=== PATIENT | female | born 1990 | race Caucasian/White ===

== ENCOUNTER 2022-01-31 02:09 | Day surgery (SDC) | payer OTHER, SELFPAY ==
[2022-01-17 14:30] VITALS: BMI 31.1
--- NOTE | 2022-01-30 10:43 | PM.HPGS ---
History of Present Illness History of Present Illness Consent: Risks, benefits, and alternatives have been discussed and questions answered. Patient agrees to proceed with procedure. Chief complaint: Fam Hx colon cancer; Hx of rectal polyps Narrative: Lata Vazquez is a 32 year old female referred for colon cancer screening. She has a history of a rectal polyp and has a family history of colon cancer. her sister in fact recently was found have high-grade dysplasia / carcinoma in Situ in the large polyp. Review of Systems Review of Systems: All systems reviewed & are unremarkable except as noted in HPI and below PMFSH Family History Family History Father Hypertension Family history of elevated blood lipids Other Carcinoma of colon Family history of cardiovascular disease Social History Social History Smoking status: Never smoker Alcohol intake: never Substance use: never Substance use type: does not use Living arrangements: with family Spiritual care concerns: No Meds Home Medications and Allergies Home Medications Medication Instructions Recorded Confirmed Type omeprazole 40 mg capsule,delayed 40 mg PO DAILY #90 caps 11/27/21 01/31/22 Rx release levonorgestrel-ethinyl estradiol See Rx Instructions .Route 12/25/21 01/31/22 Rx 0.1 mg-20 mcg tablet (Lutera (28)) .COMPLEX #84 tabs sertraline 50 mg tablet See Rx Instructions .Route 12/25/21 01/31/22 Rx .COMPLEX #90 tabs Allergies Allergy/AdvReac Type Severity Reaction Status Date / Time No Known Allergies Allergy Verified 01/31/22 06:30 Exam Resp: Auscultation: clear to auscultation bilaterally Cardio: Rate: regular rate Rhythm: regular rhythm GI: GI Palp: Yes Soft to palpation and No Tenderness to palpation present (GI) Assessment and Plan Assessment and plan (1) Family history of malignant neoplasm of colon in first degree relative diagnosed when younger than 60 years of age: Code(s): Z80.0 - Family history of malignant neoplasm of digestive organs Status: Acute Assessment and Plan: Colonoscopy with possible biopsy or polypectomy or cautery or injection of substances.
[2022-01-31 06:32] VITALS: BP 145/93; PULSE 95; RESP 18; TEMP 36.5; O2SAT 100
[2022-01-31] MEDS: LACTATED RINGERS 1,000 ML 150 ML IV CONT (06:39)
--- NOTE | 2022-01-31 07:15 | P.PNAN_ITS ---
Anes - Initial Pre Proc Eval Procedure: Operation Date: 01/31/22 07:30 Proposed Procedures p Screening Colonoscopy - Julio Cesar Chavez MD Date/Time: 01/31/22 07:15 Surgeon: Julio Cesar Chavez MD Pre Op Diagnosis: Fam Hx colon cancer; Hx of rectal polyps Patient Data Age: 32 Gender: F Height: 1.73 m Weight: 89.6 kg Last Vital Signs Temp 97.7 F 01/31/22 06:32 Pulse 95 01/31/22 06:32 Resp 18 01/31/22 06:32 BP 145/93 H 01/31/22 06:32 Pulse Ox 100 01/31/22 06:32 O2 Del Method Room Air 01/31/22 06:32 Allergies Allergy/AdvReac Type Severity Reaction Status Date / Time No Known Allergies Allergy Verified 01/31/22 06:30 Home Medications Medication Instructions Recorded Confirmed Type omeprazole 40 mg capsule,delayed 40 mg PO DAILY #90 caps 11/27/21 01/31/22 Rx release levonorgestrel-ethinyl estradiol See Rx Instructions .Route 12/25/21 01/31/22 Rx 0.1 mg-20 mcg tablet (Lutera (28)) .COMPLEX #84 tabs sertraline 50 mg tablet See Rx Instructions .Route 12/25/21 01/31/22 Rx .COMPLEX #90 tabs Patient hx anesthesia problems: none Family hx anesthesia problems: none Results Review: All pre-operative results and documents have been reviewed as part of the pre- operative evaluation. [facility] Family History Family History Father Hypertension Family history of elevated blood lipids Other Carcinoma of colon Family history of cardiovascular disease Social History Social History Smoking status: Never smoker Alcohol intake: never Substance use: never Substance use type: does not use Living arrangements: with family Spiritual care concerns: No Anes - Eval Final PreProcedure Day of Procedure 01/31/22 07:15 Patient weight: obese Heart: regular rate and rhythm Lungs: clear to auscultation Airway: Mallampati scale class II Neurological: alert and oriented Last oral intake: >/= 8 hours ASA classification: II Emergent: no Anesthetic plan: proceed Anesthesia type and monitoring: general GIVS and standard monitoring Results Review: All pre-operative results and documents have been reviewed as part of the pre- operative evaluation. Informed Consent: The patient's anesthetic plan and its attendant risks and benefits were discussed with the patient/family/POA. Questions were solicited and answers provided to the satisfaction of the patient/family/POA.
[2022-01-31 07:42] VITALS: BP 113/56; PULSE 76; RESP 18; O2SAT 98
[2022-01-31 07:52] VITALS: BP 116/78; PULSE 80; RESP 18; O2SAT 100
[2022-01-31 08:00] VITALS: BP 128/85; PULSE 72; RESP 18; O2SAT 100
== END 2022-01-31 08:15 | disposition home or self-care (01) ==
PROVIDERS: PCP Family Medicine; Visit Provider Internal Medicine Gastroenterology
PROC: 0DJD8ZZ Inspection of Lower Intestinal Tract, Via Natural or Artificial Opening Endoscopic (ICD-10-PCS; CPT 45378; principal; 2022-01-31 07:30)
DX: Z12.11 Encounter for screening for malignant neoplasm of colon (principal); D12.4 Benign neoplasm of descending colon; K63.5 Polyp of colon; Z80.0 Family history of malignant neoplasm of digestive organs; Z83.71 Family history of colonic polyps; E66.9 Obesity, unspecified; Z68.30 Body mass index [BMI] 30.0-30.9, adult
CPT/HCPCS: 45385; 45380; 88305; J2704; J7120

== ENCOUNTER 2022-11-21 07:17 | Outpatient (CLI) | payer OTHER, SELFPAY ==
[2022-11-21 08:13] LABS: Basophils Absolute Auto 0.1 K/mm3 (0.0-0.1); Basophils Percent Auto 0.8 % (0.2-1.2); Eosinophils Absolute Auto 0.2 K/mm3 (0-0.3); Hematocrit 36.8 % (37.0-47.0); Immature Granulocyte Absolute 0.01 K/mm3 (0.00-0.031); Immature Granulocyte Percent A 0.1 % (0-0.5); Lymphocytes Percent Auto 28.6 % (18.3-44.2); Mean Corpuscular HGB Conc 32.6 g/dl (32-36); Mean Corpuscular Hemoglobin 27.3 pg (26-34); Mean Corpuscular Volume 83.6 fl (80-100); Mean Platelet Volume 9.2 fl (7.4-10.4); Monocytes Absolute Auto 0.5 K/mm3 (0.1-0.6); Monocytes Percent Auto 6.7 % (2.6-8.5); Neutrophils Absolute Auto 4.5 K/mm3 (1.3-6.7); Neutrophils Percent Auto 61.8 % (45.5-73.1); Platelet Count Result 365 k/mm3 (150-375); Red Cell Distribution Width 14.6 % (11.5-14.5); White Blood Count 7.3 K/mm3 (4.5-10.0)
[2022-11-21 08:29] LABS: Alanine Aminotransferase 20 U/L (6-35); Albumin Level 4.3 g/dL (3.5-5.1); Alkaline Phosphatase 88 U/L (38-126); Anion Gap 5 mmol/L (8-16); Aspartate Amino Transferase 23 U/L (14-36); Bilirubin,Total 0.6 mg/dL (0.2-1.3); Blood Urea Nitrogen 15 mg/dL (7-17); Calcium 9.2 mg/dL (8.4-10.2); Carbon Dioxide 26 mmol/L (22-30); Chloride 104 mmol/L (98-107); Cholesterol 203 mg/dL (0-200); Estimated Glomerular Filt Rate > 60; Glucose 100 mg/dL (65-110); HDL Direct 61 mg/dL; Sodium 135 mmol/L (137-145); Triglycerides 54 mg/dL (<150)
[2022-11-21 08:40] LABS: LDL Cholesterol Direct 106 mg/dL
== END 2022-11-21 07:18 | disposition home or self-care (01) ==
LOC: ANHLAB 07:19
PROVIDERS: PCP Family Medicine; Visit Provider Family Medicine
DX: Z00.00 Encounter for general adult medical examination without abnormal findings (principal)
CPT/HCPCS: 36415; 80053; 80061; 85025

== ENCOUNTER 2024-01-25 12:52 | Outpatient (CLI) | payer OTHER, SELFPAY ==
--- NOTE | ~2024-01-25 | MM_ITS ---
EXAMINATION: MM screening [facility] BI w noman HISTORY: Screening TECHNIQUE: Craniocaudal and mediolateral oblique 3-D tomosynthesis images were obtained and synthetic 2-D images were generated. CAD analysis was submitted and interpreted. COMPARISON: No prior mammogram is available for comparison at this institution. BREAST PARENCHYMAL COMPOSITION: Dense: The breasts are heterogeneously dense, which may obscure small masses FINDINGS: There is no mammographic evidence for malignancy in the right breast. There is focal asymme try medially in the left breast, middle third on CC view. IMPRESSION: 1. Focal left breast asymmetry. 2. Additional mammographic views and possible breast ultrasound are recommended. BI-RADS Category 0: Incomplete: Needs additional imaging evaluation. Reviewed, dictated and finalized at location B. IMPRESSION: 1. Focal left breast asymmetry. 2. Additional mammographic views and possible breast ultrasound are recommended . BI-RADS Category 0: Incomplete: Needs additional imaging evaluation.
== END 2024-01-25 12:53 | disposition home or self-care (01) ==
LOC: MICIMG 12:53
PROVIDERS: PCP Family Medicine; Visit Provider Family Medicine
DX: Z12.31 Encounter for screening mammogram for malignant neoplasm of breast (principal); R92.8 Other abnormal and inconclusive findings on diagnostic imaging of breast
CPT/HCPCS: 77063; 77067

== ENCOUNTER 2024-01-27 07:43 | Outpatient (CLI) | payer OTHER, SELFPAY ==
--- NOTE | ~2024-01-27 | MMUS_ITS ---
EXAMINATION: MM diagnostic alida LT w noman, US breast LT limited HISTORY: Follow-up left breast asymmetry TECHNIQUE: Additional 3-D tomosynthesis images of the left breast were performed and synthetic 2-D im ages were generated. CAD analysis was submitted and interpreted. High resolution Limited left breast ultrasound was performed. COMPARISON: 01/25/2024 BREAST PARENCHYMAL COMPOSITION: Dense: The breasts are heterogeneously dense, which may obscure small masses FINDINGS: MAMMOGRAPHIC FINDINGS: There is persistent asymmetry in the lower inner quadrant of the left breast, anterior, middle depth. There are no suspicious calcifications. No discrete mass. ULTRASOUND: Limited left breast ultrasound: At 10:00, 3.5 cm from the nipple there is an irregular shaped hypoech oic mass measuring 6 mm with irregular echogenic rim. No posterior features or internal vascularity. No other masses are identified. IMPRESSION: 1. Irregular shaped hypoechoic mass of the left breast at 10:00, 3.5 cm from the nipple. 2. Ultrasound-guided left breast biopsy recommended. BI-RADS category 4, suspicious findings. Reviewed, dictated and finalized at location B. IMPRESSION: 1. Irregular shaped hypoechoic mass of the left breast at 10:00, 3.5 cm from th e nipple. 2. Ultrasound-guided left breast biopsy recommended. BI-RADS category 4, suspicious findings.
== END 2024-01-27 07:44 | disposition home or self-care (01) ==
LOC: MICIMG 07:43
PROVIDERS: PCP Family Medicine; Visit Provider Family Medicine
DX: R92.8 Other abnormal and inconclusive findings on diagnostic imaging of breast (principal)
CPT/HCPCS: 76642; 77061; 77065; G0279

== ENCOUNTER 2024-01-28 09:00 | Outpatient (CLI) | payer OTHER, SELFPAY ==
--- NOTE | ~2024-01-28 | US_ITS ---
US breast LT limited INDICATION: Left breast mass seen on prior examination. Biopsy requested. TECHNIQUE: Dedicated left breast ultrasound COMPARISON: Ultrasound dated 01/27/2024 FINDINGS: There is a small cyst identified. The mass of interest seen on prior examination could not be duplicated on the current study. Biopsy canceled. Recommend short-term follow-up diagnostic left m ammogram and ultrasound. IMPRESSION: 1: No sonographic evidence for malignancy. Mass seen on prior examination could not be duplicated on the current study. BI-RADS CATEGORY 3-PROBABLY BENIGN FINDING RECOMMENDATION: 6 month follow-up diagnostic left mammogram and Limited left breast ultrasound recomm ended. Reviewed, dictated and finalized at location B. IMPRESSION: 1: No sonographic evidence for malignancy. Mass seen on prior examination could not be duplicated on the current study. BI-RADS CATEGORY 3-PROBABLY BENIGN FINDING RECOMMENDATION: 6 month follow-up diagnostic left mammogram and Limited left br east ultrasound recommended.
== END 2024-01-28 09:01 | disposition home or self-care (01) ==
PROVIDERS: PCP Family Medicine; Visit Provider Family Medicine
DX: R92.8 Other abnormal and inconclusive findings on diagnostic imaging of breast (principal)
CPT/HCPCS: 76642

== ENCOUNTER 2024-07-25 08:53 | Outpatient (CLI) | payer OTHER, SELFPAY ==
--- NOTE | ~2024-07-25 | MMUS_ITS ---
EXAMINATION: MM diagnostic alida LT w noman, US breast LT limited HISTORY: 34-year-old woman with a maternal history of breast cancer (diagnosed in patient's mother at age 63) presents for diagnostic evaluation of a finding within the left breast for which ultrasound guided biopsy was recommended on 01/27/2024, for which the sonographic and mammographic abnormality c ould not be duplicated on the day of biopsy and a six-month follow-up was recommended. TECHNIQUE: Additional 3-D tomosynthesis images of upper inner left breast were performed and syntheti c 2-D images were generated. CAD analysis was submitted and interpreted. High resolution limited left breast ultrasound was performed. COMPARISON: 01/28/2024 and 01/27/2024 BREAST PARENCHYMAL COMPOSITION:Dense: The breasts are heterogeneously dense, which may obscure small masses. FINDINGS: MAMMOGRAPHIC Findings: stable parenchymal pattern without suspicious microcalcifications, architectur al distortion, discrete masses or significant asymmetry. ULTRASOUND: Within the upper inner left breast, ultrasound demonstrates benign fibroglandular elements without a cystic or solid lesion of concern. IMPRESSION: No mammographic/tomographic or sonographic evidence to suggest the presence of malignancy. Resumption of yearly mammography is recommended. Given this patient's age and risk factors, she may need high risk screening protocol (Tyrer Harrison sc ore greater than 20). If so, the addition of contrast enhanced dynamic MRI examination alternating w ith yearly mammography is recommended. BI-RADS Category 2: Benign finding(s). Thank you for the opportunity to assist in the care of your patient. For questions or concerns regarding this interpretation or recommendations, please feel free to reach out to me directly at [phone]. Reviewed, dictated and finalized at location A. IMPRESSION: No mammographic/tomographic or sonographic evidence to suggest the presence of malignancy. Resumption of yearly mammography is recommended. Given this patient's age and risk factors, she may need high risk screening pro tocol (Tyrer Harrison score greater than 20). If so, the addition of contrast en hanced dynamic MRI examination alternating with yearly mammography is recommend ed. BI-RADS Category 2: Benign finding(s). Thank you for the opportunity to assist in the care of your patient. For questions or concerns regarding this interpretation or recommendations, chad trejo feel free to reach out to me directly at [phone]. IMPRESSION: No mammographic/tomographic or sonographic evidence to suggest the presence of malignancy. Resumption of yearly mammography is recommended. Given this patient's age and risk factors, she may need high risk screening pro tocol (Tyrer Harrison score greater than 20). If so, the addition of contrast en hanced dynamic MRI examination alternating with yearly mammography is recommend ed. BI-RADS Category 2: Benign finding(s). Thank you for the opportunity to assist in the care of your patient. For questions or concerns regarding this interpretation or recommendations, chad trejo feel free to reach out to me directly at [phone].
== END 2024-07-25 08:54 | disposition home or self-care (01) ==
LOC: MICIMG 08:54
PROVIDERS: PCP Family Medicine; Visit Provider Family Medicine
DX: R92.8 Other abnormal and inconclusive findings on diagnostic imaging of breast (principal)
CPT/HCPCS: 76642; 77061; 77065; G0279

== ENCOUNTER 2024-12-09 13:23 | Outpatient (NON) | payer OTHER, SELFPAY | END 2024-12-09 13:24 | disposition home or self-care (01) | LOC: ANHLAB 13:28 | PROVIDERS: PCP Family Medicine; Visit Provider Family Medicine | DX: Z01.419 Encounter for gynecological examination (general) (routine) without abnormal findings (principal) | CPT/HCPCS: 88175; G0145 ==

== ENCOUNTER 2025-01-30 15:06 | Outpatient (CLI) | payer OTHER, SELFPAY ==
--- NOTE | ~2025-01-30 | MM_ITS ---
EXAMINATION: MM screening [facility] BI w noman HISTORY: Screening TECHNIQUE: Craniocaudal and mediolateral oblique 3-D tomosynthesis images were obtained and synthetic 2-D images were generated. CAD analysis was submitted and interpreted. COMPARISON: Comparison to multiple prior studies sequentially, with oldest reviewed study dated 01/25/2024. BREAST PARENCHYMAL COMPOSITION: Dense: The breasts are heterogeneously dense, which may obscure small masses FINDINGS: Stable asymmetry of the left breast in the upper inner quadrant, middle third. There is no evidence of suspicious mass, calcification, or architectural distortion to suggest malignancy in either breast. There has been no suspicious interval change. IMPRESSION: 1. No mammographic evidence of malignancy. 2. Recommend routine screening mammography in one year. BI-RADS Category 1: Negative Reviewed, dictated and finalized at location B.
== END 2025-01-30 15:07 | disposition home or self-care (01) ==
LOC: ANHFOHIMG 15:08
PROVIDERS: PCP Family Medicine; Visit Provider Family Medicine
DX: Z12.31 Encounter for screening mammogram for malignant neoplasm of breast (principal)
CPT/HCPCS: 77063; 77067